=== PATIENT | male | born 1985 | race Hispanic/Latino ===

== ENCOUNTER 2017-12-27 19:07 | Emergency (ER) | payer OTHER ==
[2017-12-27 19:56] LABS: #Basophils 0.1 thou/uL (0.0-0.2); #Lymphocytes 1.5 thou/uL (1.20-3.40); #Monocytes 0.4 thou/uL (0.11-0.59); #Neutrophils 3.9 thou/uL (1.40-6.50); %Eosinophils 0.2 % (0.0-10.0); %Lymphocytes 25.5 % (21.0-51.0); %Monocytes 7.5 % (0.0-10.0); %Neutrophils 65.8 % (42.0-75.0); Bilirubin Negative (Negative); Blood, Urine Trace (Negative); Clarity Clear (Clear); Glucose, Urine (Dipstick) Negative (Negative); Hemoglobin 16.4 g/dL (14.0-18.0); Leukocyte Negative (Negative); Mean Corpuscular HGB CONC 33.5 g/dL (32.0-36.0); Mean Corpuscular Hemoglobin 28.4 pg (27.0-31.0); Mean Corpuscular Volume 84.7 fL (78.0-98.0); Mean Platelet Volume 7.3 fL (7.4-10.4); Nitrite Negative (Negative); Platelet Count 327 thou/uL (130-400); Protein, Urine (Dipstick) Negative (Neg-Trace); RBC Distribution Width 11.4 % (11.5-14.5); Red Blood Cell (RBC) Count 5.79 mill/uL (4.70-6.10); Specific Gravity, Urine 1.025 (1.005-1.030); Urobilinogen 0.2 mg/dL (0.2-1.0)
[2017-12-27 19:59] LABS: Bacteria/HPF None Seen HPF (None Seen); RBC/HPF None Seen HPF (0-3); Squamous Epithelial 0-3 HPF (0-3); WBC/HPF None Seen HPF (0-3)
[2017-12-27 20:01] LABS: INR-International Normal Ratio 0.9; Prothrombin Time 12.4 SEC (12.0-14.7)
[2017-12-27 20:02] LABS: PTT 22.1 SEC (22.9-36.1)
[2017-12-27 20:11] LABS: ALT (SGPT) 52 U/L (8-55); AST (SGOT) 26 U/L (5-34); Acetaminophen Less than 6.0 mcg/mL (10.0-30.0); Albumin 4.5 g/dL (3.5-5.0); Alcohol Less than 10 mg/dL (Less than 10); Alkaline Phosphatase 73 U/L (40-150); Anion Gap 17 mmol/L (10-20); BUN (Urea Nitrogen) 13 mg/dL (8.9-20.6); Bilirubin, Total 0.6 mg/dL (0.2-1.2); Calc. Creatinine Clearance 0 mL/min (70-130); Calcium 9.3 mg/dL (7.8-10.44); Carbon Dioxide 23 mmol/L (22-29); Chloride 105 mmol/L (98-107); Estimated GFR-MDRD Greater than 90; Globulin 3.5 g/dL (2.4-3.5); Glucose 113 mg/dL (70-105); Salicylate Less than 8.0 mg/dL (15.0-30.0); Sodium 141 mmol/L (136-145)
[2017-12-27 20:13] LABS: Amphetamine Not Detected (NotDetected); Barbiturates Screen Not Detected (NotDetected); Benzodiazepine Screen Not Detected (NotDetected); Cocaine Metabolite Screen Not Detected (NotDetected); Medtox Control Line Valid? VALID (VALID); Methadone Not Detected (NotDetected); Methamphetamine Not Detected (NotDetected); Opiate Screen Not Detected (NotDetected); Oxycodone Screen Not Detected (NotDetected); Phencyclidine (PCP) Not Detected (NotDetected); THC/Cannabinoid Screen Not Detected (NotDetected); Tricyclic Screen Not Detected (NotDetected)
--- NOTE | 2017-12-27 20:43 | RAD ---
CHEST TWO VIEWS: HISTORY: Dyspnea. COMPARISON: None. FINDINGS: The lungs are clear. No pneumothorax or effusion. The cardiac silhouette and mediastinal contour ar e within normal limits. No acute osseous abnormality. IMPRESSION: No acute intrathoracic abnormality. POS: [id number]
== END 2017-12-27 23:42 | disposition home or self-care (01) ==
LOC: MADERS 19:07
DX: F32.9 Major depressive disorder, single episode, unspecified (principal); F10.10 Alcohol abuse, uncomplicated
CPT/HCPCS: 36415; 71046; 80053; 80306; 80307; 81003; 81015; 84443; 85025; 85610; 85730; 93005; 94760